=== PATIENT | female | born 1955 | race Caucasian/White ===

== ENCOUNTER → 2017-04-01 | Outpatient (CLI) | payer OTHER ==
[~2017-04-01] MED LIST: ABILIFY 5 MG TAB5 MG PO; AMBIEN 10 MG TA10 MG; ANTIVERT25 MG PO; AUGMENTIN 875875 MG PO; CYMBALTA20 MG PO; GEODON20 MG; LEVOTHYROXINE0.2 M1 PO; LYRICA 75 MG CA75 MG PO; NAPROSYN500 MG PO; NORCO 5-325 TA1 EACH PO; OMEPRAZOLE 20 M20 M1 PO; PEPCID40 MG; PROBIOTIC1 EAC1 PO; SIMVASTATIN5 MG PO; TRAZODONE HCL100 MG PO; VALIUM2 MG; XANAX 0.25 MG0.25 MG PO
== END ==
LOC: RAD 12:46
DX: M25.571 Pain in right ankle and joints of right foot (principal)

== ENCOUNTER → 2017-04-05 | Outpatient (CLI) | payer OTHER | LOC: MRI 10:13 | DX: M25.571 Pain in right ankle and joints of right foot (principal) ==

== ENCOUNTER 2017-04-11 20:16 | Emergency (ER) | payer OTHER ==
[~2017-04-11] VITALS: Ht 149.9 cm; Wt 108.9 kg
== END 2017-04-11 22:01 | disposition home or self-care (01) ==
LOC: ER 20:16
DX: S92.321A Displaced fracture of second metatarsal bone, right foot, initial encounter for closed fracture (principal); M19.90 Unspecified osteoarthritis, unspecified site; F10.99 Alcohol use, unspecified with unspecified alcohol-induced disorder; Z96.659 Presence of unspecified artificial knee joint; Z87.891 Personal history of nicotine dependence; W10.8XXA Fall (on) (from) other stairs and steps, initial encounter; Y93.89 Activity, other specified; Y92.89 Other specified places as the place of occurrence of the external cause; Y99.8 Other external cause status

== ENCOUNTER 2017-10-21 19:01 | Emergency (ER) | payer OTHER ==
[~2017-10-21] VITALS: Ht 149.9 cm; Wt 99.8 kg
--- NOTE | ~2017-10-21 | EKG ---
[address] [place] [address] ELECTROCARDIOGRAM REPORT Name: NATALIE GARCIA Room #: [facility]ALLakhwinderLakhwinder#: [id number] Admission: 10/21/17 Attend Phys: Discharge: 10/21/17 Date of : 53 Report #: [id number] THIS REPORT FOR: //name// [facility] ED Test Date: 2017-10-21 Test Time: 20:27:24 Pat Name: NATALIE GARCIA Department: Room: Gender: F [employer] Manager: [email or web address] : 1955 Requested By: Star Quintero Order Number: [id number] MD: Michael De Leon Measurements Intervals [place] Rate: 64 P: 49 HI: 136 QRS: 29 QRSD: 96 T: 32 QT: 419 QTc: 433 Interpretive Statements Sinus rhythm Low voltage, precordial leads Compared to ECG 12/09/2016 15:31:08 No significant changes Electronically Signed On 10-21-2017 23:28:59 [employer] COLLECTOR ATTENDANT by Michael De Leon [email or web address] <ELECTRONICALLY SIGNED> By: Michael De Leon MD 10/21/17 [id number] 26 26 Michael De Leon MD /PAZ
[2017-10-21] MEDS ORDERED: TUSSIONEX PENN115 ML PO (21:42)
[2017-10-21] MEDS ORDERED: DELSYM30 MG/5 M1 PO (21:42)
[2017-10-21] MEDS ORDERED: MEDROLDOSEPACK PO (21:42)
[2017-10-21] MEDS ORDERED: MUCINEX D ER 61 EACH PO (21:42)
[2017-10-21 21:55] VITALS: BP 175/88
== END 2017-10-21 21:57 | disposition home or self-care (01) ==
LOC: ER 19:01
DX: J06.9 Acute upper respiratory infection, unspecified (principal); M19.90 Unspecified osteoarthritis, unspecified site; Z96.659 Presence of unspecified artificial knee joint

== ENCOUNTER 2017-10-30 09:32 | Emergency (ER) | payer OTHER ==
[~2017-10-30] VITALS: Ht 149.9 cm; Wt 99.8 kg
[~2017-10-30 09:32] MED LIST changes: +DELSYM30 MG/5 M1 PO; +MEDROLDOSEPACK PO; +MUCINEX D ER 61 EACH PO; +TUSSIONEX PENN115 ML PO
[2017-10-30] MEDS ORDERED: NAPROXEN375 MG PO (11:23)
[2017-10-30] MEDS ORDERED: TRAMADOL 50 MG50 MG PO (11:23)
[2017-10-30] MEDS ORDERED: TESSALON PERLE100 M1 PO (11:23)
[2017-10-30 11:32] VITALS: BP 120/72
== END 2017-10-30 11:49 | disposition home or self-care (01) ==
LOC: ER 09:32
DX: J06.9 Acute upper respiratory infection, unspecified (principal); R07.89 Other chest pain; M19.90 Unspecified osteoarthritis, unspecified site; Z96.659 Presence of unspecified artificial knee joint; Z87.891 Personal history of nicotine dependence